=== PATIENT | female | born 1960 | race Caucasian/White ===

== ENCOUNTER 2016-06-03 14:00 | Inpatient (IN) | payer OTHER ==
[~2016-06-03] VITALS: Ht 177.8 cm; Wt 109.0 kg
--- NOTE | ~2016-06-03 | HP ---
PATIENT'S NAME: ANTONY LEACH [facility] AGE: 55 Y [address] ROOM: [address] [address] LOCATION: [facility] ADMIT DATE: 07/01/2016 History & Physical DISCHARGE DATE: FAMILY PHYSICIAN: Mamie Guevara MD ATTENDING PHYSICIAN: CURRY GLEASON DATE OF SERVICE: CHIEF COMPLAINT: Right hip pain. HISTORY OF PRESENT ILLNESS: The patient is a 55-year-old white female, who was admitted today with a diagnosis of end-stage DJD in right hip. The patient, by the time I see her, had undergone a successful and uncomplicated right total hip arthroplasty. Operating surgeon and admitting physician was Dr. Curry Gleason. The patient, on review, will be seen for her history of hypertension, chronic GERD, and diabetes mellitus, type 2. I have asked that we do Accu-Cheks a.c. and at bedtime. We will use a mild sliding-scale insulin per protocol with NovoLog. When I see her, she is sleepy, and there was no further history obtained. She is postop with Pain Medicine on board. CURRENT MEDICATIONS: 1. Triamcinolone nasal spray, one spray to each nostril once a day. 2. Tramadol 50 mg as needed. 3. Naprosyn 220 mg twice a day as needed. 4. Protonix 40 mg a day. 5. Metformin 500 mg one twice a day. 6. Synthroid 0.1 mg a day. 7. Potassium chloride 20 mEq two tablets 3 times a day. 8. Xanax 1 mg twice a day as needed for anxiety p.r.n. 9. Hydrochlorothiazide 25 mg a day. 10. Metoprolol 100 mg one daily. 11. Norvasc 5 mg one daily. 12. Cipro 500 mg b.i.d. 13. Singulair 10 mg a day. 14. Flexeril 10 mg as needed three times a day. 15. Meclizine 25 mg p.r.n. 16. Mobic 15 mg a day. 17. Tylenol 325 one daily p.r.n. ALLERGIES: ALLERGIES TO PENICILLIN AND CEFTIN CAUSING NAUSEA. PREVIOUS OPERATIONS: PATIENT'S NAME: ANTONY LEACH [facility] AGE: 55 Y [address] ROOM: [address] [address] LOCATION: [facility] ADMIT DATE: 07/01/2016 History & Physical DISCHARGE DATE: FAMILY PHYSICIAN: Mamie Guevara MD ATTENDING PHYSICIAN: CURRY GLEASON 1. Status post carpal tunnel surgery in right wrist. 2. Status post heart catheterization at [facility] in 2005. 3. Status post breast reduction in 2004. 4. Status post hysterectomy in 2002. 5. Status post tubal ligation in 1986. 6. Status post partial bowel resection. REVIEW OF SYSTEMS: Positive for MRSA swab of the nose. Positive for diabetes mellitus, type 2; chronic sinusitis; gastroesophageal reflux; depression; anxiety; hypertension, essential; hyperlipidemia; hypothyroidism; and fibromyalgia. FAMILY HISTORY: Negative for problems with bleeding disorder or general anesthesia. SOCIAL HISTORY: She does not smoke at this time. PHYSICAL EXAMINATION: GENERAL: A blond-haired female, who appears her stated age. She is sleepy. She is oriented to person, place, and time. HEENT: Showed pupils react to light. TMs are not visualized. Posterior pharynx is clear. NECK: Unremarkable. LUNGS: Clear without wheezes or rub. HEART: Showed no murmur, gallop, or rub. ABDOMEN: Soft without tenderness or mass. PELVIC: Not done. RECTAL: Not done. EXTREMITIES: Showed dressing over the right hip. NEUROLOGIC: Showed cranial nerves intact. No lateralizing signs. ASSESSMENT: 1. End-stage degenerative joint disease of right hip. 2. Status post right total hip arthroplasty today, 07/01/[address] Gleason. 3. History of nasal swab positive for methicillin-resistant Staphylococcus aureus. 4. Diabetes mellitus, type 2, treated with oral agents. 5. Chronic gastroesophageal reflux disease. 6. Chronic depression and anxiety, in remission. 7. Hyperlipidemia. 8. Hypothyroid replacement. 9. Fibromyalgia. PATIENT'S NAME: ANTONY LEACH [facility] AGE: 55 Y [address] ROOM: [address] [address] LOCATION: [facility] ADMIT DATE: 07/01/2016 History & Physical DISCHARGE DATE: FAMILY PHYSICIAN: Mamie Guevara MD ATTENDING PHYSICIAN: CURRY GLEASON PLAN: Follow daily and further treatments as indicated. MD HALEIGH MATA/claire /[id number] D: [id number] T: [id number] HISTORY & PHYSICAL
--- NOTE | ~2016-06-03 | OR ---
PATIENT'S NAME: HANY [facility] AGE: 55 Y [address] ROOM: [address] [address] LOCATION: [facility] ADMIT DATE: 07/01/2016 OR/Procedure Report DISCHARGE DATE: 07/02/2016 FAMILY PHYSICIAN: Mamie Guevara MD ATTENDING PHYSICIAN: CURRY GLEASON SURGEON: Curry Gleason DO GUN STOCK MAKER: DATE OF PROCEDURE: 07/01/2016 Corrected copy per physician 07/17/16 AO PREOPERATIVE DIAGNOSIS: Degenerative joint disease right hip. POSTOPERATIVE DIAGNOSIS: Degenerative joint disease right hip. PROCEDURE: Right total hip arthroplasty. MEDICAL PATHOLOGY TEACHER: No PA shipping and receiving coordinator. IV FLUIDS: See Anesthesia. 1 gram of tranexamic acid IV given at incision, 2nd gram topical at closure if no contraindication. ANESTHESIA: Spinal. ANTIBIOTICS: Given within 1 hour of incision. SPECIMEN: None. BLOOD LOSS: Less than 100 mL. COMPLICATIONS: None. IMPLANTS: Biomet size 11 mm high offset Taper-Loc complete, stem. 54 OsseoTi with no screws and shell needed. G7 E1 polyethylene liner with 36 mm ceramic head plus 6 mm and neck size on 7 stem size 11 high offset was utilized. INDICATION: The patient is a pleasant 55-year-old with longstanding hip pain decreased range of motion, antalgic gait, limp with leg length discrepancy. The patient has problems with performing activities of daily living and failed conservative therapy. The patient elected to proceed with total hip arthroplasty and skip further conservative measures. The patient understands the risk of the surgery that is up 2% of infection can occur, neurovascular injury can occur, and specifically lateral femoral cutaneous nerve injury up to 40% at the time per some literature. The patient understands the risk for PATIENT'S NAME: ANTONY LEACH [facility] AGE: 55 Y [address] ROOM: [address] [address] LOCATION: [facility] ADMIT DATE: 07/01/2016 OR/Procedure Report DISCHARGE DATE: 07/02/2016 FAMILY PHYSICIAN: Mamie Guevara MD ATTENDING PHYSICIAN: CURRY GLEASON DVT which could lead to pulmonary embolus and even . The patient understands the risk of dislocation, fracture, and implant recalls, injury to nerve and muscles tendons, loss of motion, and potential need for further surgery or revision. The patient underwent medical optimization and clearance. The patient reviewed our website at [facility] online for education and attended the total joint course. The patient understands the goals of arthritic hip pain to provide relief with improved range of motion. The patient understands that no back, spine, or radicular lower extremity pain will improve directly. The patient understands the operative leg would be lengthened and continue to have unequal leg lengths. We will do our best to make them equal. The patient understands if we do not lengthen up at this time, the hip will feel loose and have increased change of dislocation, this can result in neurovascular injury and/or fracture. The patient understands by lengthening and putting tension on the muscle this will increase the offset with the hip away from the pelvis and put tension on the gluteus muscle so the force vectors maintain the hip reduced in place. DETAILS OF PROCEDURE: The patient was brought back to the operative suite and placed under anesthesia. The patient was transferred by the OR staff from the bed to Norton table in the supine position with well padded bony extremities. With the patient position, table height fixed, preoperative template and x- rays in the room, intraoperative C-arm. X-rays were taken of both the operative and nonoperative site by x-ray senior electronics technician. Timeout confirmed, preop antibiotics and first dose of IV tranexamic acid. An approximately 8-10 cm incision was made extending from posterior to the ASIS down towards the fibular head. Interval identified between the sartorius and tensor fascia noah at the superficial layer using the modified Gr-Barajas approach. Careful attention detailed to avoid lateral femoral cutaneous nerve branches. Fascia elevated identifying the deep interval between the gluteus medius and rectus femoris. Assistants held blunt retractors, avoiding excess soft tissue injury. The perforating and lateral circumflex vessels were identified and spread with hemostat and treated with Aquamantys and Bovie. Palpation of the intertrochanteric crest with placement of a blunt Cobra retractor along the medial femoral neck above the lesser trochanter and lateral cephalad portions of the femoral neck. Capsule identified and V shaped incision was made with the Bovie and along the intertrochanteric ridge. Retractors were then placed directly inside bone within the capsule with femoral neck in between. Careful attention was detailed placing retractors to avoid any excess soft tissue traction which can result in stretch injury to neurovascular structures and skin. Femoral neck was then cut at pre-template, region taking in account the neck angle. Head was sized on the back table. OR staff then placed extremity to 45 degrees of external rotation with no traction. We then placed self retaining Charnley attach to the capsule medially and lateral to allow direct visualization of the acetabulum. No further retractors or Hohmann is required. PATIENT'S NAME: ANTONY LEACH [facility] AGE: 55 Y [address] ROOM: [address] [address] LOCATION: [facility] ADMIT DATE: 07/01/2016 OR/Procedure Report DISCHARGE DATE: 07/02/2016 FAMILY PHYSICIAN: Mamie Guevara MD ATTENDING PHYSICIAN: CURRY GLEASON I then removed the degenerative labrum and fova fat pad with Bovie cautery and reamed subsequently. First medialized and then widened up to size 1 mm less than implant. Press-fit technique was then utilized and insert cup with C-arm to confirm positioning with guide. Cup placement confirmed with guide set at 40 degrees lateral offset and 20 degrees anteversion. This visually matched to [place] acetabulum and no further removal of osteophytes required. C-arm confirmed the cup was down to level of desired position with no significant zone lucencies and no further acetabular screws needed. Highly crosslined G7 flat liner was then placed confirming well fixed using freer to confirm locked. Then removed the Charnley retractor to address the proximal femur. OR staff confirmed no tension was on the extremity and placed the extremity in desired external rotation and adduction with extension. Blunt retractors AKA Batman and Jimmie were placed behind the greater trochanter and medial femoral near the calcar and released the capsular ligament to allow easy access to proximal femur with the leg held in extension and external rotation of the adduction. Box osteotome was then utilized to gain entry into the femur followed by blunt tip and handheld rasp into the femoral canal. Subsequent hand broaching and Calcar reaming performed. No fractures caused or identified. Trial stem and neck were placed and the leg reduced with assistance of the OR staff operating on the Norton table under direct visualization. The leg was brought through range of motion and confirmed stable. There were no impinging osteophytes at risk for levering or dislocation. Confirmed trial stem positioning with x-ray and performed an overlay intraoperatively comparing preoperative and intraoperative trials. We established a proposed lateral offset and leg length without impingement as desired. Stability was confirmed. The boot was taken out of the table and hip was brought into flexion and internal rotation and confirmed stable posterior without impingement or dislocation and brought into extension and external rotation confirming stable anterior without impingement. No excess soft tissue tension, lengthening, impingement of the iliopsoas was appreciated. The trials were removed and final stem placed using press-fit technique. The final head was locked into place. Surgical staff performed final reduction of the hip. The patient had no obvious fractures or impingement and confirmed good stability. The wound was irrigated. Hemostasis confirmed. Capsule was repaired with #1 Vicryl in a [id number] pattern. Cocktail injected away from the neurovascular structures and topical tranexamic acid placed. The fascia of tensor closed with single #1 Vicryl followed by #2 running Quill with careful attention to detail avoid the lateral femoral cutaneous nerve if visualized. Subcutaneous tissue closed with 3-0 Monocryl in simple buried patten followed by V-Loc and Dermabond. Once the Dermabond had dried, a sterile Mepilex dressing was placed by surgical staff. DAVID hose was pulled up from the knee all the way up to the thigh and started preop bilateral lower extremities with SCDs continuing throughout the case to prevent DVT. Sponge and needle counts were reported correct x3. The patient was transferred to hospital bed and delivered to the recovery room by OR and Anesthesia staff in stable condition PATIENT'S NAME: ANTONY LEACH [facility] AGE: 55 Y [address] ROOM: [address] [address] LOCATION: [facility] ADMIT DATE: 07/01/2016 OR/Procedure Report DISCHARGE DATE: 07/02/2016 FAMILY PHYSICIAN: Mamie Guevara MD ATTENDING PHYSICIAN: CURRY GLEASON no reported complications. The patient will continue DVT prophylaxis with DAVID hose, SCDs, and enteric-coated aspirin if not contraindicated. Begin physical therapy for gait training and strengthening. This is secondary to increased duration due to excess adipose tissue and required additional personnel and assistance, equipment, and time over a standard BMI patient. 37.7elevated BMI. Please see the chart for the actual number. Increased amount of time of 22 minutes. CURRY GLEASON DO PH/modl /[id number] Corrected copy per physician 07/17/16 AO d: 07/01/16 1239 t: 07/24/16 1121, OPERATIVE SUMMARY
[2016-06-03] MEDS ORDERED: NASACORT16.9 ML NOSE (14:30)
[2016-06-03] MEDS ORDERED: ALEVE220 MG PO (14:31)
[2016-06-03] MEDS ORDERED: ULTRAM50 MG PO (14:31)
[2016-06-03] MEDS ORDERED: PROTONIX40 MG PO (14:32)
[2016-06-03] MEDS ORDERED: LEVOTHROID (S100 MCG PO (14:32)
[2016-06-03] MEDS ORDERED: GLUCOPHAGE500 MG PO (14:32)
[2016-06-03] MEDS ORDERED: XANAX1 MG PO (14:33)
[2016-06-03] MEDS ORDERED: K-TAB ER20 MEQ PO (14:33)
[2016-06-03] MEDS ORDERED: HYDRODIURIL25 MG PO (14:34)
[2016-06-03] MEDS ORDERED: TOPROL XL100 MG PO (14:34)
[2016-06-03] MEDS ORDERED: NORVASC5 MG PO (14:34)
[2016-06-03] MEDS ORDERED: CIPRO500 MG PO (14:35)
[2016-06-03] MEDS ORDERED: SINGULAIR10 MG PO (14:35)
[2016-06-03] MEDS ORDERED: FLEXERIL10 MG PO (14:36)
[2016-06-03] MEDS ORDERED: MECLIZINE HCL25 MG PO (14:36)
[2016-06-03] MEDS ORDERED: MOBIC15 MG PO (14:37)
[2016-06-03] MEDS ORDERED: NAPROSYN500 MG PO (14:38)
[2016-06-05] MEDS ORDERED: TYLENOL325 MG PO (11:00)
--- NOTE | 2016-07-01 14:25 | NUR ---
Introduced self/role to patient, her mom and sister. Lives in [place], identified she had lots of supports. Didn't think any DME would be needed. She had no concerns about going home. Spoke to Sabrina, charge nurse - wound vac in place and take home one is in the room. No needs related to that to address.
--- NOTE | 2016-07-01 16:54 | NUR ---
PATIENT DOING WELL. UP TO RECLINER X 1. CSM ADEQUATE. OXYCOONE LAST AT 1540, WOUND VAC INTACT RIGHT ANTERIOR HIP. NO N/V.
--- NOTE | 2016-07-02 05:04 | NUR ---
Significant Event: 1 assist with transfers. Wound vac with no output. Dressing is clean, dry and intact. CSM WNL. Oxycodone last at 0257. On room air. Possible dismissal. Voids without difficulty. Follow up:
[2016-07-02 05:34] LABS: HEMOGLOBIN 8.4 g/dL (10.0-15.0)
[2016-07-02] MEDS ORDERED: ECOTRIN325 MG PO (15:32)
[2016-07-02] MEDS ORDERED: CELEBREX200 MG PO (15:33)
[2016-07-02] MEDS ORDERED: COLACE100 MG PO (15:34)
[2016-07-02] MEDS ORDERED: MIRALAX17 GM PO (15:35)
[2016-07-02] MEDS ORDERED: LYRICA 75MG CAP75 MG PO (15:35)
[2016-07-02] MEDS ORDERED: ROXICODONE 5MG (5 MG PO (15:36)
--- NOTE | 2016-07-02 17:41 | NUR ---
Discharge instructions reviewed with patient and her fammily. Reviewed care of dressing, wound vac, s/s infection, all medications, when to call md, etc. Refer to instructions for details. All belongings sent with patient. All questions answered. Encouraged to call md after discharge with any questions. To front door per w/c.
== END 2016-07-02 16:15 | disposition disaster alternative care site (69) | DRG 470 ==
LOC: G3N 07-01 06:41
PROVIDERS: ADMIT Orthopaedic Surgery
PROC: 0SR902A Replacement of Right Hip Joint with Metal on Polyethylene Synthetic Substitute, Uncemented, Open Approach (ICD-10-PCS; principal; 2016-07-01)
DX: M19.90 Unspecified osteoarthritis, unspecified site (principal); I10 Essential (primary) hypertension; E03.9 Hypothyroidism, unspecified; E11.9 Type 2 diabetes mellitus without complications; E78.5 Hyperlipidemia, unspecified; F32.9 Major depressive disorder, single episode, unspecified; K21.9 Gastro-esophageal reflux disease without esophagitis; M79.7 Fibromyalgia; Z86.14 Personal history of Methicillin resistant Staphylococcus aureus infection
CPT/HCPCS: C1776; G0009; J0171; J0690; J0735; J2001; J2250; J2795; J3370; J7030; J7040

== ENCOUNTER → 2016-06-05 | Outpatient (CLI) | payer OTHER ==
[~2016-06-05] MED LIST: ALEVE220 MG PO; CELEBREX200 MG PO; CIPRO500 MG PO; COLACE100 MG PO; ECOTRIN325 MG PO; FLEXERIL10 MG PO; GLUCOPHAGE500 MG PO; HYDRODIURIL25 MG PO; K-TAB ER20 MEQ PO; LEVOTHROID (S100 MCG PO; LYRICA 75MG CAP75 MG PO; MECLIZINE HCL25 MG PO; MIRALAX17 GM PO; MOBIC15 MG PO; NAPROSYN500 MG PO; NASACORT16.9 ML NOSE; NORVASC5 MG PO; PROTONIX40 MG PO; ROXICODONE 5MG (5 MG PO; SINGULAIR10 MG PO; TOPROL XL100 MG PO; TYLENOL325 MG PO; ULTRAM50 MG PO; XANAX1 MG PO
== END | disposition disaster alternative care site (69) ==
LOC: GNJRC 09:00
DX: Z01.818 Encounter for other preprocedural examination (principal); M16.11 Unilateral primary osteoarthritis, right hip